=== PATIENT | male | born 1975 | race African-American/Black ===

== ENCOUNTER 2017-03-13 16:32 | Emergency (ER) | payer BC ==
[~2017-03-13] VITALS: Ht 177.8 cm; Wt 104.3 kg
[2017-03-13] MEDS ORDERED: IV NORMAL SALINE 1000ML BAG 1,000 ML IV SCH (16:51)
[2017-03-13] MEDS ORDERED: 0.9 % SODIUM CHLORIDE 10 ML DISP.SYRIN. IV ONE (17:00)
[2017-03-13] MEDS ORDERED: ALBUTEROL SULFATE 2.5 MG/3 ML NEBU. CONT NEB ONE (17:00)
[2017-03-13] MEDS ORDERED: ASPIRIN CHEWABLE 81 MG TABLET. PO ONE (17:00)
[2017-03-13] MEDS ORDERED: IPRATROPIUM BROMIDE 0.5 MG/2.5 ML NEBU. NEB ONE (17:00)
--- NOTE | 2017-03-13 17:00 | PHYS DOC ---
Past Medical History Past Medical History: Hypertension, Pneumonia Additional Past Surgical Histo: back surgery Smoking: Cigarettes, Greater than 1 pack/day Alcohol Use: Occasionally Drug Use: Marijuana Adult General Chief Complaint Chief Complaint: SHORTNESS OF BREATH HPI HPI Patient is a pleasant 41-year-old -Indian male with a known history of COPD hypertension, and chronic lower back pain and presents with shortness of breath has gotten progressively last several months. He initially remembers having a pneumonia about 4 months ago and over the last 4 months she's had progressive shortness of breath with nonproductive cough. Patient notes no chest pain with this shortness of breath just increasing fatigue to the point where he was working out several times a week now does work out at all. He is put on weight he has had generalized weakness with this increased shortness of breath. He notes that this increased shortness of breath is also associated with decreased exercise tolerance as well as chest tightness with exertion. He denies any nausea, vomiting, abdominal pain, diarrhea, fevers, chills, flu symptoms, runny nose, ear pain. Patient admits he supposed be on carvedilol and Lasix for his high blood pressure but is been attempting to wean himself off medications. Patient denies any recent travel outside the country or other PE risk factors. He is single he does smoke he has no allergies to medications he has been known to use marijuana in the past. Patient admits that he was trying to lose weight by making eating only vegetarian diet bilaterally lasted a few months. Patient denies any early family history of stroke or heart attack at age of 50. Differential diagnosis: Acute myocardial ischemia, heart failure, cardiac tamponade, bronchospasm, pulmonary embolism, pneumothorax, pulmonary infection i.e. bronchitis or pneumonia, upper airway obstruction, anaphylaxis, aspiration , psychogenic, pulmonary contusion, toxidrome, pneumomediastinum, noncardiogenic pulmonary edema or ARDS, COPD, tuberculosis, cystic fibrosis, asthma, high altitude pulmonary edema, valvular dysfunction, cardiac dysrhythmia , stroke, neuromuscular diseases like myasthenia gravis gravis, ALS, Guillain- James syndrome, metabolic acidosis to include diabetic ketoacidosis, sepsis, and obstructive disorders like massive obesity Review of Systems Review of Systems Constitutional: Denies fever or chills he does complain of increased fatigue and decreased excess tolerance. Eyes: Denies change in visual acuity, redness, or eye pain [] HENT: Denies nasal congestion or sore throat [] Respiratory: This patient does complain of a nonproductive cough and increasing shortness of breath with exertion.[] Cardiovascular: No additional information not addressed in HPI [] GI: Denies abdominal pain, nausea, vomiting, bloody stools or diarrhea [] : Denies dysuria or hematuria [] Musculoskeletal: She has chronic back pain but nothing new. Integument: Denies rash or skin lesions [] Neurologic: Denies headache, focal weakness or sensory changes [patient only complains of generalized weakness without focal changes.] Endocrine: Denies polyuria or polydipsia [] All other systems were reviewed and found to be within normal limits, except as documented in this note. Current Medications Current Medications Current Medications Medications (Trade) Dose Ordered Sig/Aubree Start Time Stop Time Status Last Admin Dose Admin Albuterol Sulfate (Ventolin Neb Soln) 10 mg 1X ONCE 03/13/17 17:00 03/13/17 17:18 DC 03/13/17 17:26 10 MG Aspirin (Children'S Aspirin) 324 mg 1X ONCE 03/13/17 17:00 03/13/17 17:18 DC 03/13/17 17:57 324 MG Ipratropium [place] (Atrovent) 0.5 mg 1X ONCE 03/13/17 17:00 03/13/17 17:18 DC 03/13/17 17:23 0.5 MG Magnesium Sulfate/ Dextrose 50 ml @ 25 mls/hr 1X ONCE 03/13/17 18:30 03/13/17 20:29 DC 03/13/17 18:58 25 MLS/HR Sodium Chloride 1,000 ml @ 1,000 mls/hr Q1H 03/13/17 16:51 03/13/17 17:50 DC 03/13/17 16:51 1,000 MLS/HR Sodium Chloride (Normal Saline Flush) 10 ml 1X ONCE 03/13/17 17:00 03/13/17 17:18 DC 03/13/17 17:00 10 ML Allergies Allergies Allergies Coded Allergies Type Severity Reaction Last Updated Verified No Known Drug Allergies 03/13/17 No Physical Exam Physical Exam Of the patient's vital signs on the chart within normal limits no hypoxia no tachypnea no tachycardia no hypertension Constitutional: Well developed, well nourished, no acute distress, non-toxic appearance. [] HENT: Normocephalic, atraumatic, bilateral external ears normal, oropharynx dry tacky no oral exudates, nose normal. [] Eyes: PERRLA, EOMI, conjunctiva normal, no discharge. [] Neck: Normal range of motion, no tenderness, supple, no stridor. [] Cardiovascular:Heart rate regular rhythm, no murmur [] Lungs & Thorax: Bilateral breath sounds clear to auscultation [] Abdomen: Bowel sounds normal, soft, no tenderness, no masses, no pulsatile masses. [] Skin: Warm, dry, no erythema, no rash. [] Back: No tenderness, no CVA tenderness. [] Extremities: No tenderness, no cyanosis, no clubbing, ROM intact, no edema. [] Neurologic: Alert and oriented X 3, normal motor function, normal sensory function, no focal deficits noted. [] Psychologic: Affect normal, judgement normal, mood normal. [] Current Patient Data Vital Signs Vital Signs Date Time Temp Pulse Resp B/P (MAP) Pulse Ox O2 Delivery O2 Flow Rate FiO2 03/13/17 20:15 92 33 115/77 (90) 99 03/13/17 17:45 Room Air 03/13/17 16:50 98.3 98.3 Lab Values Laboratory Tests Test 03/13/17 17:05 03/13/17 18:02 White Blood Count 8.0 x10^3/uL (4.0-11.0) Red Blood Count 4.50 x10^6/uL (4.30-5.70) Hemoglobin 13.6 g/dL (13.0-17.5) Hematocrit 40.3 % (39.0-53.0) Mean Corpuscular Volume 90 fL (79-100) Mean Corpuscular Hemoglobin 30 pg (25-35) Mean Corpuscular Hemoglobin Concent 34 g/dL (31-37) Red Cell Distribution Width 14.7 % (11.5-14.5) H Platelet Count 238 x10^3/uL (140-400) Neutrophils (%) (Auto) 70 % (31-73) Lymphocytes (%) (Auto) 20 % (24-48) L Monocytes (%) (Auto) 4 % (0-9) Eosinophils (%) (Auto) 5 % (0-3) H Basophils (%) (Auto) 1 % (0-3) Neutrophils # (Auto) 5.6 x10^3uL (1.8-7.7) Lymphocytes # (Auto) 1.6 x10^3/uL (1.0-4.8) Monocytes # (Auto) 0.3 x10^3/uL (0.0-1.1) Eosinophils # (Auto) 0.4 x10^3/uL (0.0-0.7) Basophils # (Auto) 0.1 x10^3/uL (0.0-0.2) Urine Collection Type Unknown Urine Color Straw Urine Clarity Clear Urine pH 6.0 Urine Specific [place] <=1.005 Urine Protein Negative mg/dL (NEG-TRACE) Urine Glucose (UA) Negative mg/dL (NEG) Urine Ketones (Stick) Negative mg/dL (NEG) Urine Blood Negative (NEG) Urine Nitrite Negative (NEG) Urine Bilirubin Negative (NEG) Urine Urobilinogen Dipstick 0.2 mg/dL (0.2 mg/dL) Urine Leukocyte Esterase Negative (NEG) Urine RBC 0 /HPF (0-2) Urine WBC 0 /HPF (0-4) Urine Squamous Epithelial Cells None /LPF Urine Bacteria 0 /HPF (0-FEW) Sodium Level 139 mmol/L (136-145) Potassium Level 3.8 mmol/L (3.5-5.1) Chloride Level 102 mmol/L (98-107) Carbon Dioxide Level 30 mmol/L (21-32) Anion Gap 7 (6-14) Blood Urea Nitrogen 8 mg/dL (8-26) Creatinine 1.1 mg/dL (0.7-1.3) Estimated GFR (Cockcroft-Gault) 73.4 Glucose Level 91 mg/dL (70-99) Calcium Level 8.8 mg/dL (8.5-10.1) Magnesium Level 1.6 mg/dL (1.8-2.4) L Total Bilirubin 0.7 mg/dL (0.2-1.0) Direct Bilirubin 0.2 mg/dL (0.0-0.2) Aspartate Amino Transferase (AST) 20 U/L (15-37) Alanine Aminotransferase (ALT) 21 U/L (16-63) Alkaline Phosphatase 73 U/L (46-116) Creatine Kinase 186 U/L (39-308) Creatine Kinase MB (Mass) 1.1 ng/mL (0.0-3.6) Creatine Kinase MB Relative Index 0.6 % (0-4) Troponin I Quantitative 0.340 ng/mL (0.000-0.055) IG-Gfj-C-Type Natriuretic Peptide 1150 pg/mL (0-124) H Total Protein 7.5 g/dL (6.4-8.2) Albumin 3.8 g/dL (3.4-5.0) Thyroid Stimulating Hormone (TSH) 0.837 uIU/mL (0.358-3.74) Urine Opiates Screen Neg (NEG) Urine Methadone Screen Neg (NEG) Urine Barbiturates Neg (NEG) Urine Phencyclidine Screen Neg (NEG) Urine Amphetamine/Methamphetamine Neg (NEG) Urine Benzodiazepines Screen Neg (NEG) Urine Cocaine Screen Neg (NEG) Urine Cannabinoids Screen Neg (NEG) Urine Ethyl Alcohol Neg (NEG) Influenza Type A Antigen Negative (NEGATIVE) Influenza Type B Antigen Negative (NEGATIVE) Laboratory Tests 03/13/17 17:05 Laboratory Tests 03/13/17 17:05 EKG EKG []EKG read by me at 4:43 PM 2003 demonstrates a normal sinus rhythm with P waves and QRS there is a large specific QRS width specific with a left bundle-branch block. Patient's QRS width is 1:30. Patient's. Intervals 182 which is normal, there is a clear left bundle mass block with some ST segment T- wave changes in the lateral leads which may represent either ischemia changes on EKG. Radiology/Procedures Radiology/Procedures [] Course & Med Decision Making Course & Med Decision Making Pertinent Labs and Imaging studies reviewed. (See chart for details) []Impression presented with chest pain as very concerning for cardiac ischemia. He isn't overweight 41-year-old male with progressive shortness of breath and exertional dyspnea as well as chest discomfort. There is a courses evaluation patient had a chest x-ray, EKG, troponin and appropriate labs and supported the diagnosis of cardiac ischemia done. History: Based on history, elevated troponin, and risk factors patient was intermediate risk with a score of 4-6. Highly suspicious 2 points moderately suspicious 1. slightly suspicious 0 point EKG: ST segment depression 2. nonspecific repolarization disturbance 1. normal 0 point Age: Greater than 65 2 points, 65-45 1., less than 45 years old 0 points Risk factors:> 3 risk factors 2 points, 1-2 risk factors one point, no risk factors 0 point Troponin: > 2 times normal 2 points, 1-2 times normal 1., normal limits 0 point Total score: Score % pts MACE/n MACE Policy 0-3 32% 1.9% 0.05% Discharge 4-6 51% 413/3136 13% 1.3% Observation Risk management 7-10 17% 518/1045 50% 2.8% Observation Treatment, CAG The course evaluation he was discovered that the patient elevated troponin. Patient was convinced he was not having any kind of heart attack or cardiac problem. Patient was convinced that is all from dehydration and that if he did have a cardiac problem you follow-up with his primary care doctor or go to the hospital and after his final exams. Patient was a heavy set gentleman who smoked and was consuming alcohol as well as now sedentary with decreased exercise tolerance. I was still concerned about patient that Dr. Astudillo cardiology happened to be in the ER at the time and in attempt to encourage him to stay and see a blister packaging machine operator I had Dr. Astudillo speaks the patient bedside about his symptoms. Patient was convinced that he did not have any cardiac problems despite Dr. Burroughs is not and I attempted to have him follow-up and be admitted to the hospital he decided to discharge himself from the hospital and signed out AMA. We gave him every up-to-date understand significance of the situation patient is lucid I have explained to him the alternatives to treatment , encourage him to return if symptoms increase. I still provided him discharge instructions and follow-up encouragement. I was very concerned about this patient's history and his positive troponin and he had a N STEMI but still would prefer to be discharged from the hospitalist AMA. Iv[place] Disclaimer Dragon Disclaimer This electronic medical record was generated, in whole or in part, using a voice recognition dictation system. Departure Departure Impression: Primary Impression: COPD exacerbation Additional Impressions: Chest pain Troponin I above reference range Dyspnea on exertion Left against medical advice Disposition: AGAINST MEDICAL ADVICE Condition: GUARDED Referrals: COREY ASTUDILLO MD Patient Instructions: Cardiac-Specific Troponin I and T, Chest Pain ( Nonspecific), Shortness of Breath Additional Instructions: discharge: I've spoken with the patient and/or caregivers. I've explained the patient's condition, diagnosis and treatment plan based on information available to me at this time. I've answered the patient's and/or caregivers questions and addressed any concerns. The patient and/or caregivers have a good understanding the patient's diagnosis, condition and treatment plan as can be expected at this point. Vital signs have been stabilized. The patient's condition is stable for discharge from the emergency department. The patient will pursue further outpatient evaluation with her primary care provider or other designated consulting physician as outlined in the discharge instructions. Patient and/or caregivers are agreeable to this plan of care and follow-up instructions have been explained in detail. The patient and/or caregivers have received these instructions in written format and expressed understanding of these discharge instructions. The patient and her caregivers are aware that if any significant change in condition or worsening of symptoms should prompt him to immediately return to this of the closest emergency department. If an emergent department is not readily available I would encourage him to call 911. Review of sign out AGAINST MEDICAL ADVICE we encouraged her to return immediately for any return of your symptoms. Considering the fact that you were seen a blister packaging machine operator here in the emergency department and opted to treat to I would encourage you see your blister packaging machine operator as soon as he can arrange. I do not believe you're positive troponin and chest pain shortness addressed other associated with dehydration alone. I am concerned that you have significant cardiac issue significant cardiac the disease that may manifest self with a specific and significant injury to your cardiac function and last Oj cause significant debility and possible . It is clear that you are lucid and your understanding the risks you're taking Scripts Prednisone (PREDNISONE) 50 Mg Tablet 1 TAB PO DAILY, #5 TAB Prov: MICH ONEIL MD 03/13/17 Ciprofloxacin Hcl (CIPRO) 500 Mg Tablet 1 TAB PO BID, #20 TAB Prov: MICH ONEIL MD 03/13/17 Albuterol Sulfate (PROAIR HFA INHALER) 8.5 Gm Hfa.aer.ad 1 PUFF INH PRN Q6HRS Y for SHORTNESS OF BREATH for 5 Days, INHALER 0 Refills Prov: MICH ONEIL MD 03/13/17 Problem Qualifiers MICH ONEIL MD Mar 13, 2017 17:00
[2017-03-13 17:19] LABS: BASO # 0.1 x10^3/uL (0.0-0.2); BASO % 1 % (0-3); EOS % 5 % (0-3); HEMATOCRIT 40.3 % (39.0-53.0); HEMOGLOBIN 13.6 g/dL (13.0-17.5); LYMPH # 1.6 x10^3/uL (1.0-4.8); LYMPH % 20 % (24-48); MEAN CORPUSCULAR HEMOGLOBIN 30 pg (25-35); MEAN CORPUSCULAR HGB CONC 34 g/dL (31-37); MEAN CORPUSCULAR VOLUME 90 fL (79-100); MONO % 4 % (0-9); NEUT % 70 % (31-73); PLATELET COUNT 238 x10^3/uL (140-400); RED CELL DISTRIBUTION WIDTH 14.7 % (11.5-14.5)
[2017-03-13 17:20] LABS: BILIRUBIN,URINE NEGATIVE (NEG); GLUCOSE,URINE NEGATIVE (NEG); NITRITE,URINE NEGATIVE (NEG); PROTEIN,URINE NEGATIVE (NEG-TRACE); UROBILINOGEN,URINE 0.2 mg/dL (0.2 mg/dL)
[2017-03-13 17:27] LABS: BARBITURATES NEG (NEG); BENZODIAZEPINES NEG (NEG); CANNABINOIDS NEG (NEG); COCAINE NEG (NEG); METHADONE NEG (NEG); OPIATES NEG (NEG); PHENCYCLIDINE NEG (NEG)
[2017-03-13 17:32] LABS: BACTERIA,URINE 0 /HPF (0-FEW); RBC,URINE 0 /HPF (0-2); WBC,URINE 0 /HPF (0-4)
[2017-03-13 17:36] LABS: CALCIUM 8.8 mg/dL (8.5-10.1); CREATININE 1.1 mg/dL (0.7-1.3); GFR 73.4; POTASSIUM 3.8 mmol/L (3.5-5.1)
[2017-03-13 17:42] LABS: ALBUMIN 3.8 g/dL (3.4-5.0); DIRECT BILIRUBIN 0.2 mg/dL (0.0-0.2); MAGNESIUM 1.6 mg/dL (1.8-2.4); TOTAL BILIRUBIN 0.7 mg/dL (0.2-1.0); TOTAL PROTEIN 7.5 g/dL (6.4-8.2)
[2017-03-13 17:52] LABS: CKMB MASS 1.1 ng/mL (0.0-3.6)
--- NOTE | 2017-03-13 17:59 | EKG ---
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
[2017-03-13] MEDS ORDERED: MAGNESIUM SULFATE 2GM 50 ML IV ONE (18:30)
[2017-03-13 18:36] LABS: OBC FLU VALID
[2017-03-13] MEDS ORDERED: CIPR500T94 PO (19:30)
[2017-03-13] MEDS ORDERED: PROAIR HFA8.5 GM INH (19:30)
[2017-03-13] MEDS ORDERED: PRED50TA PO (19:30)
[2017-03-13 20:15] VITALS: BP 115/77
--- NOTE | 2017-03-14 08:08 | RAD ---
Indication: Shortness of air. Time of exam 1720 hours. No prior studies are available for comparison. The heart is enlarged. There is right convexity thoracic scoliotic curvature. No infiltrate or failure is detected. No effusion or pneumothorax is seen. Impression: Cardiomegaly.
== END 2017-03-13 20:30 | disposition left against medical advice (07) ==
LOC: ER 16:32
DX: J44.1 Chronic obstructive pulmonary disease with (acute) exacerbation (principal); R07.89 Other chest pain; R79.89 Other specified abnormal findings of blood chemistry; G89.29 Other chronic pain; M54.5 Low back pain; I10 Essential (primary) hypertension; F12.10 Cannabis abuse, uncomplicated; F17.210 Nicotine dependence, cigarettes, uncomplicated
CPT/HCPCS: 36415; 71020; 80048; 80076; 80307; 81001; 82553; 83735; 83880; 84443; 84484; 85025; 87804; 93005; 94644; 96360; 96361; 99285; J7030; J7060; J7613; J7644; 94640; G0479

== ENCOUNTER 2017-04-04 12:15 | Emergency (ER) | payer BC ==
[2017-04-04 14:03] LABS: OBC FLU VALID
[2017-04-04] MEDS: ALBUTEROL SULFATE 2.5 MG/3 ML NEBU. NEB (14:08)
[2017-04-04] MEDS: ACETAMINOPHEN 500 MG TABLET PO (14:13)
[2017-04-04] MEDS ORDERED: IPRATRPIUM/ALBUTEROL 0.5/2.5MG 3 ML NEBU. (14:21)
[2017-04-04] MEDS: IPRATRPIUM/ALBUTEROL 0.5/2.5MG 3 ML NEBU. NEB ×2 (14:27)
== END 2017-04-04 14:58 | disposition home or self-care (01) ==
LOC: ER 12:15
DX: J09.X2 Influenza due to identified novel influenza A virus with other respiratory manifestations (principal); G89.29 Other chronic pain; I10 Essential (primary) hypertension; F12.10 Cannabis abuse, uncomplicated
CPT/HCPCS: 71020; 87804; 87804-59; 94640; 99285-25; J7613; J7620